=== PATIENT | male | born 1945 | race Caucasian/White ===

== ENCOUNTER → 2016-10-10 | Outpatient (CLI) | payer OTHER | LOC: NC 14:45 | PROVIDERS: ATTEND Family Medicine | DX: D51.9 Vitamin B12 deficiency anemia, unspecified (principal); G50.0 Trigeminal neuralgia; E78.5 Hyperlipidemia, unspecified; I50.9 Heart failure, unspecified; I25.10 Atherosclerotic heart disease of native coronary artery without angina pectoris ==

== ENCOUNTER → 2017-02-21 | Outpatient (CLI) | payer OTHER | END | disposition home or self-care (01) | LOC: GMAJ 11:49 | PROVIDERS: ATTEND Family Medicine | DX: N18.4 Chronic kidney disease, stage 4 (severe) (principal) ==

== ENCOUNTER → 2017-05-03 | Outpatient (CLI) | payer OTHER | LOC: GMAJ 15:01 | PROVIDERS: ATTEND Family Medicine | DX: E53.8 Deficiency of other specified B group vitamins (principal); I10 Essential (primary) hypertension; Z12.5 Encounter for screening for malignant neoplasm of prostate | CPT/HCPCS: 82607; 84443; G0103 ==

== ENCOUNTER → 2017-10-25 | Outpatient (CLI) | payer OTHER ==
--- NOTE | 2017-10-28 11:07 | MRI ---
EXAM DESCRIPTION: Lumbar Spine w/o Contrast MRI. CLINICAL HISTORY: RADICULOPATHY COMPARISON: MRI lumbar spine 03/16/2015. TECHNIQUE: Multiplanar, multiple standard sequences, non contrast MRI, lumbar spine. FINDINGS: L5-S1: Diffuse Modic type II endplate reactive changes. Moderate disc space loss. Mild facet arthrosis in the posterior ligament hypertrophy. Left ligament narrowing the subarticular lateral recess on the left. Deformity left L5 pars interarticularis. Minimal posterior disc osteophyte bulge into the canal. Marked left foraminal narrowing. Moderate right foraminal narrowing. L4-5: Disc desiccation and minimal disc space loss. Trace anterolisthesis. Posterior broad-based 4 mm disc bulge. Bilateral facet arthrosis and ligament hypertrophy more on the left. Narrowing of the subarticular recess on the left. Marked narrowing of the canal. Moderate stenosis left foramen. Moderate narrowing right foramen. L3-4: Disc desiccation and minimal disc space loss posterior. Schmorl's node superior L4 endplate. Associated with Modic type II endplate reactive changes. Posterior broad-based 4 mm disc bulge. Mild to moderate posterior ligament hypertrophy and facet arthrosis with moderate canal narrowing. Moderate foraminal narrowing. Mild narrowing left foramen. L2-3: Disc desiccation. Minimal posterior disc space loss and tiny posterior broad-based disc bulge. Mild posterior ligament hypertrophy and facet arthrosis. Significant narrowing left foramen. Moderate narrowing right foramen. Narrowing right subarticular recess. L1-2: Disc desiccation and anterior minimal disc bulge and endplate ridging. Posterior disc space narrowing. Trace retrolisthesis. Modic type II L1 endplate reactive changes. Mild facet arthrosis and posterior ligament hypertrophy. Mild canal narrowing. Bilateral moderate to severe foraminal narrowing. T12-L1: Disc desiccation and minimal disc space loss. Anterior bulging with endplate ridging. Grade 1 retrolisthesis. Small posterior disc bulge. Schmorl's node inferior T12 endplate with Modic type I endplate reactive changes. Mild canal narrowing. Mild facet arthrosis and posterior ligament hypertrophy. Moderate to severe foraminal narrowing. Conus terminates at this level. Paravertebral soft tissues show muscle atrophy. No soft tissue mass or abnormal fluid collection. L2-L4 levoscoliosis. Normal marrow signal in the remaining vertebral bodies and the posterior elements. Vertebral bodies are not compressed at any level. IMPRESSION: 1. Moderate spondylosis and disc space loss at L5-S1. Marked left foraminal narrowing. Narrowing of the left subarticular recess. Stable since the prior study. 2. L4-5 grade 1 anterolisthesis. 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 On the prior study. Moderate Stenosis left foramen. Progressed since the prior study. Posterior broad-based disc bulge. 3. Posterior disc bulge. Moderate canal narrowing. Moderate spondylosis anterior L4 endplate. 4. Posterior L2-3 broad-based disc bulge. Significant narrowing left foramen. Narrowing right subarticular recess. Electronically signed by: Marquez Massey MD 10/28/2017 11:06 AM [facility]
== END ==
LOC: MRI 12:48
PROVIDERS: ATTEND Psychiatry & Neurology Neurology
DX: M51.16 Intervertebral disc disorders with radiculopathy, lumbar region (principal); M47.896 Other spondylosis, lumbar region; M51.26 Other intervertebral disc displacement, lumbar region

== ENCOUNTER → 2017-11-05 | Outpatient (CLI) | payer OTHER | LOC: GMAJ 14:22 | PROVIDERS: ATTEND Family Medicine | DX: E53.8 Deficiency of other specified B group vitamins (principal); I10 Essential (primary) hypertension ==

== ENCOUNTER → 2018-04-25 | Outpatient (CLI) | payer OTHER | LOC: GMAJ 14:57 | PROVIDERS: ATTEND Family Medicine | DX: E53.8 Deficiency of other specified B group vitamins (principal); I10 Essential (primary) hypertension; Z12.5 Encounter for screening for malignant neoplasm of prostate ==

== ENCOUNTER → 2018-11-04 | Outpatient (CLI) | payer MEDICARE, OTHER ==
--- NOTE | 2018-11-04 17:29 | MRI ---
EXAM DESCRIPTION: Brain w/oContrast CLINICAL HISTORY: FACIAL WEAKNESS COMPARISON: CT head August 14, 2016 TECHNIQUE: Non contrast MRI of the brain is performed according to our usual protocol including multiplanar multi sequence technique. FINDINGS: Sagittal T1 images show intact corpus callosum. Normal pituitary gland with normal T1 appearance of the [place] and medulla and upper cervical cord. Normal signal intensity within the clivus and calvarium. Axial T2 fat sat images reveal preservation of intracranial vascular flow voids. Normal goins matter and white matter T2 signal intensity. Normal ventricles with normal gyral and sulcal fold pattern. The globes appear intact and symmetrical. No abnormal fluid signal in the paranasal sinuses, tympanic cavities or mastoid air cells. Axial flair images show a few scattered foci of increased signal intensity in the central and subcortical white matter of both cerebral hemispheres in addition to a tiny focus involving goins matter of the posterior left frontal lobe. Findings are consistent with chronic microvascular ischemic changes related to aging, diabetes or hypertension. Diffusion weighted images are negative for focal intense increased signal intensity in the brain parenchyma to suggest restricted diffusion. ADC mapping is negative. Axial T1 images show normal goins-white matter differentiation. No high signal intensity hemorrhagic lesion of the brain parenchyma. No subdural hematoma. Coronal susceptibility weighted images are negative for focal signal loss to suggest abnormal brain parenchymal calcification or hemosiderin deposition. IMPRESSION: No acute intracranial pathologic process. Mild chronic microvascular ischemic changes as described. Electronically signed by: Tarik Higgins MD 11/04/2018 5:27 PM [facility]
== END ==
LOC: RAD 14:44
PROVIDERS: ATTEND Family Medicine
DX: I69.992 Facial weakness following unspecified cerebrovascular disease (principal)

== ENCOUNTER 2019-01-13 17:08 | Inpatient (IN) | payer OTHER ==
--- NOTE | 2019-01-13 18:26 | ED.PDOC ---
History of Present Illness - General Source: patient Exam Limitations: clinical condition - History of Present Illness Initial Comments: the patient is a 73-year-old male presented to the emergency room secondary to increasing drowsiness, increasing weakness and falls. He has had several falls in the last few days. This is not really a new issue. The patient has had issues with oversedation with medications as well as generalized weakness and falls at least for the last 3 years according to medical records. The patient does have some very mild anasarca. He does have some mild periorbital edema. He has a mild abrasion just above the hairline centrally. Extraocular movements are intact. He does appear very tired. He is able to move all extremities. He does report pain in bilateral hips since his falls. He does take multiple sedating medications. He does take pyridostigmine but family is uncertain if he technically has myasthenia gravis. He is able to name off most of his medical problems. He is less certain about his medications. He denies overtaking any medications. He is not entirely certain when his last Lasix dose was. He is short of breath with activity but not really with lying back. Oxygen saturations were 88% in transit with EMS. The patient takes multiple chronic pain medications secondary to complex regional pain syndrome involving his neck and face. He takes large doses of hydrocodone and Ativan.he and family report no definite history of any congestive heart failure. The patient is not very active at baseline and does have significant deconditioning to start with. Timing/Duration: unsure Severity: moderate Improving Factors: nothing Worsening Factors: nothing Associated Symptoms: malaise, weakness <Gui Cartagena - Last Filed: 01/13/19 18:50> <Regla Caba - Last Filed: 01/13/19 20:56> - General Chief Complaint: General Stated Complaint: fallen twice today, edema Time Seen by Provider: 01/13/19 17:11 - History of Present Illness Allergies/Adverse Reactions: Allergies NO KNOWN ALLERGY Allergy (Verified 07/13/16 14:57) Home Medications: Ambulatory Orders Amlodipine Besylate [Norvasc] 10 mg PO DAILY 11/06/14 Clopidogrel Bisulfate [Plavix] 75 mg PO DAILY 11/06/14 Desvenlafaxine Succinate [Pristiq] 100 mg PO DAILY 02/06/15 Olanzapine 5 mg PO DAILY 11/06/14 Furosemide [Lasix] 40 mg PO ANJALI-OTH-DAY 07/13/16 Potassium Chloride [Potassium Chloride ER] 10 meq PO BID 07/13/16 Pregabalin [Lyrica] 100 mg PO BID 07/13/16 Metoprolol Succinate [Toprol Xl] 50 mg PO QAM #30 tab.er.24 08/16/16 Pyridostigmine [place] 30 mg PO TID 08/16/16 Chlorthalidone [Hygroton] 25 mg PO DAILY 01/13/19 HYDROcodone 10MG/APAP 325MG [[place] ] 2 ea PO Q6H PRN 01/13/19 Rosuvastatin Calcium 10 mg PO DAILY 01/13/19 Review of Systems - Review of Systems Constitutional: States: malaise, weakness EENTM: States: no symptoms reported Respiratory: States: short of breath - with activity Cardiology: States: edema Gastrointestinal/Abdominal: States: no symptoms reported Genitourinary: States: no symptoms reported Musculoskeletal: States: see HPI Skin: States: see HPI Neurological: States: see HPI Endocrine: States: no symptoms reported All other Systems: No Change from Baseline <Gui Cartagena - Last Filed: 01/13/19 18:50> Past Medical History (General) - Patient Medical History Hx Seizures: No Hx Stroke: No Hx Asthma: No Hx of COPD: No Hx Cardiac Disorders: Yes Hx Congestive Heart Failure: No Hx Pacemaker: No Hx Hypertension: Yes Hx Diabetes: No Hx MRSA: Yes MRSA Source:: Wound - Vaccination History Hx Influenza Vaccination: Yes Hx Pneumococcal Vaccination: Yes - Social History Hx Tobacco Use: Yes Hx Chewing Tobacco Use: Yes Hx Alcohol Use: No Hx Substance Use: No Hx Substance Use Treatment: No Hx Depression: No Hx Physical Abuse: No Hx Emotional Abuse: No - Female History Patient : No <Gui Cartagena - Last Filed: 01/13/19 18:50> Family Medical History - Family History Father Family History: Unknown Living Status: Age at (years of age): 71 Cause of : [place] Mother Family History: Unknown Living Status: Age at (years of age): 87 Cause of : [place] <Gui Cartagena - Last Filed: 01/13/19 18:50> Physical Exam - Physical Exam General Appearance: Lethargic - but arousable to voice. He does have some decreased hearing so you have to speak loudly., Unkempt Eye Exam: bilateral normal - extraocular movements are intact. He does have some periorbital edema. Ears, Nose, Throat: normal pharynx Neck: full range of motion, supple Respiratory: no respiratory distress, no accessory muscle use, other - very mild bibasilar rales. Cardiovascular/Chest: normal peripheral pulses, regular rate, rhythm, other - +1 edema to bilateral lower extremities Peripheral Pulses: radial,right: 2+, radial,left: 2+, dorsalis pedis,right: 2+, dorsalis pedis,left: 2+ Gastrointestinal/Abdominal: non tender - obese, soft, other - pelvis appears to be stable with pressure. Rectal Exam: deferred Back Exam: no CVA tenderness Extremity: normal capillary refill, pedal edema, other - he does have discomfort palpation with bilateral hips and does have some discomfort with active and passive range of motion as well in the areas. Neurologic: other - drowsy but oriented. Skin Exam: normal color - with the exception of a mild abrasion to the central upper scalp and a mild abrasion to the left knee from the fall Comments: Vital Signs - 24 hr 01/13/19 17:22 Temperature 100.0 F H Pulse Rate [ 78 left brachial] Respiratory 14 Rate Blood Pressure 128/52 [right brachial ] O2 Sat by Pulse 98 Oximetry <Gui Cartagena - Last Filed: 01/13/19 18:50> Progress - Progress Progress: 01/13/19 18:32 the patient is a 73-year-old male presenting with progressive weakness and recurrent falls and drowsiness. The patient does take numerous sedating medications which may be the entirety of the explanation for this behavior. He also likely has myasthenia gravis being that he takes pyridostigmine. It is possible he has missed a few doses or that his dose may end up needing to be increased on this medication. 01/13/19 18:51 update the patient is a little more responsive after a dose of pyridostigmine. Troponin has come back at 0.29 but no evidence of any chest pain. CK is still pending. Renal function is still pending. Chest x-ray still pending. Patient will be checked out on coming ER physician for completion of workup and disposition. - Results/Orders Results/Orders: EKG shows normal sinus rhythm at 72 bpm. He does have criteria for LVH and he does have what is probably a mild bundle branch block. He has old Q waves in lead 3. He has old ST depression in lead 1 and aVL. Poor R-wave progression in anterior leads is new since 2016. Normal QT interval. head CT shows chronic microvascular changes. No acute pathology. <Gui Cartagena L - Last Filed: 01/13/19 18:50> - Progress Progress: 01/13/19 20:55 PT REMAINS SOMNOLENT, HOWEVER ABLE TO BE ARROUSED WITH VERBAL STIMULI. PT HAS SLURRED SPEECH BUT ANSWERS QUESTIONS APPROPRIATELY. LABS AND DIAGNOSTICS DISCUSSED WITH FAMILY AT BEDSIDE. - Results/Orders Results/Orders: Laboratory Tests 01/13/19 01/13/19 01/13/19 17:55 17:56 17:56 WBC 5.8 RBC 3.75 L Hgb 12.5 L Hct 36.9 L MCV 98.2 H MCH 33.3 H MCHC 33.9 RDW 12.9 Plt Count 152 MPV 7.4 Absolute Neuts (auto) 4.10 Absolute Lymphs (auto) 0.80 L Absolute Monos (auto) 0.80 Absolute Eos (auto) 0.00 Absolute Basos (auto) 0.00 Neutrophils % 71.3 Lymphocytes % 14.4 L Monocytes % 13.1 H Eosinophils % 0.6 L Basophils % 0.6 pCO2 49 H pO2 97 HCO3 29.8 ABG pH 7.410 ABG O2 Saturation 99.6 H ABG Base Excess 4.8 ABG Deoxyhemoglobin 0.4 Oxyhemoglobin % 97.4 Carboxyhemoglobin % 0.3 L Methemoglobin % Sat 1.9 H Calc Total Hemoglobin 11.8 L Sodium 143 Potassium 3.3 L Chloride 104 Carbon Dioxide 27 Anion Gap 15.3 BUN 28 H Creatinine 1.35 H BUN/Creatinine Ratio 20.7 H POC Glucose Random Glucose 111 H Serum Osmolality 291.1 Lactic Acid Calcium 9.0 Magnesium 1.9 Total Bilirubin 0.5 AST 68 H ALT 32 Alkaline Phosphatase 74 Ammonia CK-MB (CK-2) 68.4 H* Troponin I 0.29 H* B-Natriuretic Peptide 56.5 Serum Total Protein 6.6 Albumin 4.1 Globulin 2.5 Albumin/Globulin Ratio 1.6 TSH 0.65 Urine Color Urine Appearance Urine pH Ur Specific [place] Urine Protein Urine Glucose (UA) Urine Ketones Urine Blood Urine Nitrite Urine Bilirubin Urine Urobilinogen Ur Leukocyte Esterase Urine RBC Urine WBC Ur Epithelial Cells Urine Bacteria 01/13/19 01/13/19 01/13/19 17:56 17:56 17:56 WBC RBC Hgb Hct MCV MCH MCHC RDW Plt Count MPV Absolute Neuts (auto) Absolute Lymphs (auto) Absolute Monos (auto) Absolute Eos (auto) Absolute Basos (auto) Neutrophils % Lymphocytes % Monocytes % Eosinophils % Basophils % pCO2 pO2 HCO3 ABG pH ABG O2 Saturation ABG Base Excess ABG Deoxyhemoglobin Oxyhemoglobin % Carboxyhemoglobin % Methemoglobin % Sat Calc Total Hemoglobin Sodium Potassium Chloride Carbon Dioxide Anion Gap BUN Creatinine BUN/Creatinine Ratio POC Glucose 94 Random Glucose Serum Osmolality Lactic Acid 1.6 Calcium Magnesium Total Bilirubin AST ALT Alkaline Phosphatase Ammonia 49 H CK-MB (CK-2) Troponin I B-Natriuretic Peptide Serum Total Protein Albumin Globulin Albumin/Globulin Ratio TSH Urine Color Urine Appearance Urine pH Ur Specific [place] Urine Protein Urine Glucose (UA) Urine Ketones Urine Blood Urine Nitrite Urine Bilirubin Urine Urobilinogen Ur Leukocyte Esterase Urine RBC Urine WBC Ur Epithelial Cells Urine Bacteria 01/13/19 18:06 WBC RBC Hgb Hct MCV MCH MCHC RDW Plt Count MPV Absolute Neuts (auto) Absolute Lymphs (auto) Absolute Monos (auto) Absolute Eos (auto) Absolute Basos (auto) Neutrophils % Lymphocytes % Monocytes % Eosinophils % Basophils % pCO2 pO2 HCO3 ABG pH ABG O2 Saturation ABG Base Excess ABG Deoxyhemoglobin Oxyhemoglobin % Carboxyhemoglobin % Methemoglobin % Sat Calc Total Hemoglobin Sodium Potassium Chloride Carbon Dioxide Anion Gap BUN Creatinine BUN/Creatinine Ratio POC Glucose Random Glucose Serum Osmolality Lactic Acid Calcium Magnesium Total Bilirubin AST ALT Alkaline Phosphatase Ammonia CK-MB (CK-2) Troponin I B-Natriuretic Peptide Serum Total Protein Albumin Globulin Albumin/Globulin Ratio TSH Urine Color Yellow Urine Appearance Clear Urine pH 5.0 Ur Specific [place] 1.015 Urine Protein Negative Urine Glucose (UA) Negative Urine Ketones Negative Urine Blood Moderate H Urine Nitrite Negative Urine Bilirubin Negative Urine Urobilinogen 0.2 Ur Leukocyte Esterase Negative Urine RBC 0-1 Urine WBC 0 Ur Epithelial Cells 0 Urine Bacteria 0 <Regla Caba H - Last Filed: 01/13/19 20:56> Departure <Gui Cartagena - Last Filed: 01/13/19 18:50> - Departure Time of Disposition: 20:54 <Regla Caba - Last Filed: 01/13/19 20:56> - Departure Clinical Impression: Generalized weakness, Lethargy, Rhabdomyolysis, Acute kidney injury, Elevated troponin I level Fall at home Qualifiers: Encounter type: initial encounter Qualified Code(s): W19.XXXA - Unspecified fall, initial encounter Disposition: Admit Patient Condition: Poor Departure Forms: ED Discharge - Pt. Copy, Patient Portal Self Enrollment Referrals: Benjamin Kirby MD [Primary Care Provider] - 1-2 Weeks Home Medications: Ambulatory Orders Amlodipine Besylate [Norvasc] 10 mg PO DAILY 11/06/14 Clopidogrel Bisulfate [Plavix] 75 mg PO DAILY 11/06/14 Desvenlafaxine Succinate [Pristiq] 100 mg PO DAILY 11/06/14 Olanzapine 5 mg PO DAILY 11/06/14 Furosemide [Lasix] 40 mg PO ANJALI-OTH-DAY 07/13/16 Potassium Chloride [Potassium Chloride ER] 10 meq PO BID 07/13/16 Pregabalin [Lyrica] 100 mg PO BID 07/13/16 Metoprolol Succinate [Toprol Xl] 50 mg PO QAM #30 tab.er.24 08/16/16 Pyridostigmine [place] 30 mg PO TID 08/16/16 Chlorthalidone [Hygroton] 25 mg PO DAILY 01/13/19 HYDROcodone 10MG/APAP 325MG [[place] 10/325] 2 ea PO Q6H PRN 01/13/19 Rosuvastatin Calcium 10 mg PO DAILY 01/13/19 Decision To Admit - Decistion To Admit Decision to Admit Reason: Admit from ER Decision to Admit Date: 01/13/19 Decision to Admit Time: 20:54 - CASE DISCUSSED WITH JESSIE SAMUEL NP WHO AGREES TO ADMIT <Regla Caba - Last Filed: 01/13/19 20:56>
--- NOTE | 2019-01-13 18:43 | CT ---
PROCEDURE: Head CLINICAL HISTORY: 73 years Male ams TECHNIQUE: Contiguous axial CT images obtained through the brain without IV contrast. This CT exam was performed according to our departmental dose-optimization program, which includes one or more of the following dose reduction techniques: automated exposure control, adjustment of the mA and/or kV according to patient size, and/or use of iterative reconstruction technique. COMPARISON: Correlation is made with the prior MRI dated 11/04/2018 FINDINGS: There is no intracranial hemorrhage, extraaxial collection, or evidence of acute transcortical infarction. Scattered foci of low attenuation within the periventricular white matter and calcifications in the basal ganglia are most compatible with chronic microvascular disease. The ventricles and sulci are symmetric without midline shift or mass effect. Vascular calcifications are noted. No lesion of the skull base or calvarium is identified. The paranasal sinuses and mastoid air cells are clear. IMPRESSION: Mild chronic microvascular changes without acute intracranial finding. Electronically signed by: Alondra Nieves MD 01/13/2019 6:40 PM CDT
[2019-01-13] MEDS ORDERED: SODIUM CHLORIDE 0.9% 1000ML 1,000 ML IVS ONE (20:39)
--- NOTE | 2019-01-13 22:46 | HP ---
SUPERVISING PHYSICIAN: Betina Bobo MD CHIEF COMPLAINT: Fall. HISTORY OF PRESENT ILLNESS: Mr. Chauhan is a 73-year-old male patient with a history of myasthenia gravis, reflex sympathetic dystrophy and trigeminal neuralgia. He presented to the Emergency Room via 911 secondary to increased drowsiness and weakness with multiple falls within the last several days. He had actually fallen on the same day as admission and laid on the floor for a couple of hours face down and required assistance to get up and was taken to the Emergency Department for evaluation. In the Emergency Room, he was found to be very somnolent and appeared to be over sedated with medications to include [place]. He was also having some bilateral hip pain since the fall and he does take pyridostigmine for myasthenia gravis and is unsure whether or not he had actually missed a dose or two the other day. His O2 saturations on transport to the Emergency Room were around 88%. Additional laboratory studies in the Emergency Room showed he did have an elevated ammonia level at 49 and a CK 4,564 with troponin elevated at 0.29. He denied any chest pains. EKG showed no acute injury pattern. He then had a CT of the head which showed mild chronic microvascular changes without acute intracranial findings. He was given a dose of pyridostigmine which did result in some increase in his mentation. Given his fall and his elevated CPK levels with concerns for developing rhabdomyolysis and what appears to be a mild exacerbation of his myasthenia gravis secondary to poor compliance with medication regimen, the patient is going to be admitted to the hospital for ongoing treatment of acute rhabdomyolysis secondary to a same- level fall and further neurologic evaluation. PAST MEDICAL HISTORY: 1. Coronary artery disease. 2. Hyperlipidemia. 3. Hypertension. 4. Diverticulosis. 5. Myasthenia gravis. 6. Transient ischemic attacks. 7. Reflex sympathetic dystrophy. 8. Trigeminal neuralgia. PAST SURGICAL HISTORY: 1. Coronary stent placement in 2004 and 2014. 2. Trigeminal nerve ablation on the right. HOME MEDICATIONS: 1. Rosuvastatin 10 mg daily. 2. Pyridostigmine bromide 30 mg t.i.d. 3. Lyrica 100 mg b.i.d. 4. Potassium chloride 10 mEq b.i.d. 5. Olanzapine 5 mg daily. 6. Metoprolol XL 50 mg daily. 7. [place] 10/325 mg 2 tablets q.6h. as needed. 8. Lasix 40 mg every other day. 9. Pristiq 100 mg daily. 10. Plavix 75 mg daily. 11. Chlorthalidone 25 mg daily. 12. Norvasc 10 mg daily. ALLERGIES: NO KNOWN DRUG ALLERGIES. FAMILY HISTORY: Unknown. SOCIAL HISTORY: The patient is disabled. He is and lives at home with his with Lewy body dementia. He has two children. He does not drink alcohol and has never smoked tobacco. REVIEW OF SYSTEMS: CONSTITUTIONAL: Positive for general malaise and weakness with falls. HEENT: Negative for sore throats, earaches, nasal congestion, sinus pressure. RESPIRATORY: Positive for shortness of breath with activity, but negative for any wheezing, coughing. CARDIOVASCULAR: Negative for chest pain, palpitations, tachycardia or syncopal episodes. Positive for peripheral edema. GASTROINTESTINAL: Negative for nausea, vomiting, diarrhea, constipation or abdominal pain. GENITOURINARY: Negative for dysuria, hematuria, polyuria. MUSCULOSKELETAL: As noted in history of present illness, ongoing weakness and bilateral hip pain. NEUROLOGIC: As noted in history of present illness, positive for myasthenia gravis with recent falls and increase in somnolence. Negative for seizures, ataxia. PHYSICAL EXAMINATION: VITAL SIGNS: Temperature 100.0. Pulse 88. Blood pressure 120/52. Respirations 14. Saturation 98% on 2 liter nasal cannula. Admission weight 104.8 kg. GENERAL: On examination in the Emergency Room, the patient is resting comfortably. He is a little lethargic, but easily arousable with voice, very unkept, but well-nourished, well-hydrated. HEENT: Tympanic membranes clear bilaterally. Oropharynx is pink, moist without any lesions. There is some bilateral periorbital edema from laying face down for several hours. Extraocular movements are intact. No nystagmus. NECK: Supple, nontender with full range of motion. RESPIRATORY: Lungs diminished towards the bases with just very fine bibasilar rales. No wheezing. Breath sounds equal bilaterally. CARDIOVASCULAR: Regular rate and rhythm without any appreciable murmurs, gallops, or rubs. ABDOMEN: Obese, but soft, nontender. Positive bowel sounds. RECTAL: Deferred. BACK: No CVA tenderness. EXTREMITIES: There is trace edema bilaterally. Pelvis appears to be stable on exam. NEUROLOGIC: The patient is drowsy and mildly lethargic, but easily arousable, but when aroused, he is oriented x3. SKIN: There is mild abrasion to the central upper scalp area and mild abrasion to the left knee from same-level fall. Skin is pink, warm and dry. No lesions or rashes other than noted above. LABORATORY: White count 5,800, hemoglobin 12.5, hematocrit 36.9, platelet count 152,000. Differential without a left shift. Blood gas analysis showed pH 7.41, pCO2 49, pO2 97, pCO3 29, base excess normal at 4.8, saturation 99% on 2 liters nasal cannula. Chemistries showed mildly low potassium at 3.3, BUN 28, creatinine 1.35, glucose 111, calcium 9.9, magnesium 1.9, bilirubin 0.5, AST slightly elevated at 68. ALT and alpha within normal limits. Glucose 564, troponin 0.29, TSH normal at 0.65. Urinalysis showed a moderate amount of blood, otherwise within normal limits. RADIOLOGY: CT of the head per radiologic interpretation showed mild chronic microvascular changes without acute intracranial findings. EKG showed normal sinus rhythm at 72 with probable mild bundle branch block and old ST depression in lead I and AVL compared to 2016. ASSESSMENT: 1. Mild to moderate exacerbation of myasthenia gravis secondary to medical compliance. 2. Generalized weakness with same-level fall secondary to #1. 3. Acute rhabdomyolysis secondary to #1. 4. Acute kidney injury secondary to rhabdomyolysis. 5. Elevated troponin level with no signs of acute injury pattern on EKG and the patient without any signs or symptoms of chest pain requiring further rule out. 6. Elevated ammonia level, probably due to rhabdomyolysis with elevated CPK levels requiring ongoing fluid management with the patient showing good clinical response to treatment. 7. Hypertension. 8. History of reflex sympathetic dystrophy and trigeminal neuralgia. 9. Electrolyte imbalance with a mild hypokalemia. PLAN: The patient is going to be admitted for treatment of acute rhabdomyolysis secondary to same-level fall. We will start him on some D5W with 75 mg of sodium bicarb at [address] will [address] a Riley catheter to further monitor is strict I&O pattern as we try to correct the elevated CPK and his acute renal failure. I will hold off on his sedative medications, but resume his pyridostigmine to prevent any further exacerbation of his myasthenia gravis. We will plan to repeat labs in the morning including CBC, CMP and CPK levels with troponin and ammonia as needed. We will have him on DVT prophylaxis per protocol. We will anticipate his length of stay to be 2 to 3 days. When his kidney function is improving and CPK returning to normal levels, he will be discharged to followup in outpatient setting. [facility][id number] [facility]
[2019-01-13] MEDS ORDERED: SODIUM CHLORIDE 0.9% (FLUSH) 10 ML SYG IV PRN (23:10)
[2019-01-13] MEDS ORDERED: ONDANSETRON INJ 4 MG/2 ML VIAL IV PRN (23:10)
[2019-01-13] MEDS ORDERED: DEXTROSE 5% 1000ML 1,000 ML IVS ONE (23:29)
[2019-01-13] MEDS ORDERED: SODIUM BICARBONATE VIAL 50 MEQ/50 ML VIAL ONE (23:29)
[2019-01-13] MEDS: SODIUM BICARBONATE VIAL 75 MEQ in DEXTROSE 5% 1000ML 1,000 ML IVS PRN (23:41)
[2019-01-13] MEDS: IV SET AND CAP CHANGE INJ INJ SCH (23:57)
[2019-01-14] MEDS ORDERED: DEXTROSE 5% 1000ML 0 ML IVS ONE (07:03)
[2019-01-14] MEDS ORDERED: SODIUM BICARBONATE VIAL 50 MEQ/50 ML VIAL ONE ×3 (07:04→22:58)
[2019-01-14] MEDS: SODIUM BICARBONATE VIAL 75 MEQ in DEXTROSE 5% 1000ML 1,000 ML IVS PRN ×2 (07:10→17:06)
[2019-01-14] MEDS: amLODIPine BESYLATE 5 MG TAB PO SCH (11:18)
[2019-01-14] MEDS: CLOPIDOGREL 75 MG TAB PO SCH (11:18)
[2019-01-14] MEDS: PREGABALIN 100 MG CAP PO SCH ×2 (11:18→20:58)
[2019-01-14] MEDS: PYRIDOSTIGMINE BROMIDE 60 MG PO SCH ×3 (11:18→20:58)
[2019-01-14] MEDS: METOPROLOL SUCCINATE XL 50 MG TAB PO SCH (11:18)
[2019-01-14] MEDS: OLANZapine ODT 5 MG TAB PO SCH (11:18)
[2019-01-14] MEDS: ENOXAPARIN SODIUM 40 MG/0.4 ML SYG SUBCU SCH (11:20)
--- NOTE | 2019-01-14 14:51 | RAD ---
EXAM DESCRIPTION: Hip Bilateral CLINICAL HISTORY: bi hip pain COMPARISON: None. TECHNIQUE: 2 views bilateral FINDINGS: Examination of the left hip reveals no bone joint or soft tissue abnormality. No fracturing is detected. Examination of the right hip reveals no bone joint or soft tissue abnormality. No fracturing is detected. IMPRESSION: Normal bilateral hips. Electronically signed by: Yossi Mace MD 01/14/2019 2:48 PM CDT
[2019-01-14] MEDS ORDERED: DEXTROSE 5% 1000ML 1,000 ML IVS ONE ×2 (16:53→22:57)
[2019-01-14] MEDS: DESVENLAFAXINE SUCCINATE 100 MG PO SCH (17:07)
[2019-01-14] MEDS: ACETAMINOPHEN 325 MG TAB PO PRN (22:10)
[2019-01-14] MEDS ORDERED: AZITHROMYCIN IV 500 MG VIAL IVPB ONE (22:58)
[2019-01-14] MEDS ORDERED: SODIUM CHL 0.9% 50ML MIN-BAG+ 50 ML IVPB ONE (22:58)
[2019-01-14] MEDS ORDERED: cefTRIAXone SODIUM 1 GM VIAL ONE (22:58)
[2019-01-14] MEDS ORDERED: SODIUM CHLORIDE 0.9% 250ML 250 ML ONE (22:58)
[2019-01-14] MEDS ORDERED: POTASSIUM CHLORIDE 20 MEQ TAB PO ONE (23:02)
[2019-01-14] MEDS: cefTRIAXone SODIUM 1 GM in SODIUM CHL 0.9% 50ML MIN-BAG+ 50 ML IVPB SCH (23:10)
[2019-01-14] MEDS: IPRATROPIUM/ALBUTEROL 3 ML VIAL NEB SCH (23:16)
[2019-01-14] MEDS ORDERED: SODIUM CHLORIDE 0.45% 1000ML 1,000 ML IVS PRN (23:20)
[2019-01-14] MEDS ORDERED: KCL 20MEQ/0.45% NS 1,000 ML IVS ONE (23:21)
[2019-01-14] MEDS: AZITHROMYCIN IV 500 MG in SODIUM CHLORIDE 0.9% 250ML 250 ML IVPB SCH (23:25)
[2019-01-14] MEDS: KCL 20MEQ/0.45% NS 1,000 ML IVS PRN (23:46)
[2019-01-15] MEDS: KCL 20MEQ/0.45% NS 1,000 ML IVS PRN ×3 (06:15→20:12)
--- NOTE | 2019-01-15 08:00 | PN ---
SUPERVISING PHYSICIAN: Betina Bobo MD DATE: 01/14/19 SUBJECTIVE: The patient is much more alert this morning. He appears to be back to his baseline mental status. His son and were at the bedside. The patient is alert. He is not complaining of any pain he normally does not have. He has had no chest pain, shortness of breath, nausea, vomiting. OBJECTIVE: VITAL SIGNS: Temperature 99. Pulse 63. Blood pressure 120/66. Respirations 20. Oxygen saturation 96% on 1 liter nasal cannula at rest. I&Os show negative balance of 405 with 1995 in and 2400 out. He has had one bowel movement. Weight 104.8 kg. GENERAL: The patient is resting in bed comfortably. He is alert. CHEST: Lungs clear to auscultation, slightly diminished towards the bases bilaterally. HEART: Regular rate and rhythm. ABDOMEN: Obese, but soft and nontender. Positive bowel sounds. EXTREMITIES: No edema. NEUROLOGIC: Alert and oriented times three. LABORATORY: WBC stable at 5,900. Hemoglobin and hematocrit are stable at 13.1 and 39.3 respectively. Platelet count 142,000. Differential without a left shift. Chemistries show a continued low potassium of 3.0. Carbon dioxide normal at 29. BUN elevated at 22, creatinine normalized to 1.18. Calcium 8.8. Liver functions show slight elevation of AST. ALT is within normal limits as well as alkaline phosphatase. CK is up to 5,010. Troponin is down to 0.27. Urinalysis showed a moderate amount of blood. MICROBIOLOGY: MRSA surveillance culture is pending. RADIOLOGY: Hip x-ray was without any acute findings per radiologic interpretation of bilateral hips. ASSESSMENT: 1. Mild exacerbation of myasthenia gravis secondary to poor medical compliance with medication regimen. 2. Generalized weakness complicated by sedative medications including [place] and presenting as a same-level fall secondary to #1. 3. Acute rhabdomyolysis secondary to #1, improving with fluids. 4. Acute kidney injury, now normal baseline levels, secondary to rhabdomyolysis and on current bicarbonate infusion. 5. Elevated troponin level, returning to baseline levels with no signs of acute injury on EKG and the patient with no signs of chest pains or complications, likely due to high levels of CK and mild kidney injury. 6. Elevated ammonia levels, probably due to rhabdomyolysis and elevated CK levels presenting as a metabolic encephalopathy exacerbated by myasthenia gravis, now back to baseline levels as far as his mentation. 7. Hypertension, stable. 8. History of reflex sympathetic dystrophy and trigeminal neuralgia. 9. Electrolyte imbalance with persistent hypokalemia secondary to IV administration of fluids. PLAN: We will continue with treatment of acute rhabdomyolysis with D5W and 75 mEq of sodium bicarb running at 150. We will continue to monitor his I&Os with a Riley catheter with anticipation of removing that tomorrow. We will plan to repeat his CK levels tonight around 10 o'clock and in the morning. We will resume the rest of his medications including pain management and monitor his neuro status closely. Until the CK level is returning to baseline levels, we will continue to treat as needed. He will be on DVT prophylaxis. Until he clinically improves well enough to continue with outpatient management, we will continue to monitor and treat as needed. [facility][id number] [facility]
[2019-01-15] MEDS: PYRIDOSTIGMINE BROMIDE 60 MG PO SCH ×3 (08:41→21:01)
[2019-01-15] MEDS: CLOPIDOGREL 75 MG TAB PO SCH (08:43)
[2019-01-15] MEDS: OLANZapine ODT 5 MG TAB PO SCH (08:43)
[2019-01-15] MEDS: ATORVASTATIN 20 MG TAB PO SCH (08:43)
[2019-01-15] MEDS: amLODIPine BESYLATE 5 MG TAB PO SCH (08:43)
[2019-01-15] MEDS: ENOXAPARIN SODIUM 40 MG/0.4 ML SYG SUBCU SCH (08:44)
[2019-01-15] MEDS: POTASSIUM CHLORIDE 10 MEQ TAB PO SCH ×2 (08:44→20:59)
[2019-01-15] MEDS: METOPROLOL SUCCINATE XL 50 MG TAB PO SCH (08:44)
[2019-01-15] MEDS: PREGABALIN 100 MG CAP PO SCH ×2 (08:44→20:59)
[2019-01-15] MEDS ORDERED: POTASSIUM CHLORIDE 20 MEQ TAB PO ONE (08:51)
[2019-01-15] MEDS: IPRATROPIUM/ALBUTEROL 3 ML VIAL NEB SCH ×4 (09:02→19:57)
[2019-01-15] MEDS: DESVENLAFAXINE SUCCINATE 100 MG PO SCH ×2 (09:08→14:33)
--- NOTE | 2019-01-15 10:34 | PN ---
SUPERVISING PHYSICIAN: Betina Bobo MD DATE: 01/15/19 SUBJECTIVE: The patient is lying in bed. He has no complaints of nausea, vomiting, diarrhea, constipation or shortness of breath. OBJECTIVE: VITAL SIGNS: Temperature 98.3. Heart rate 66. Blood pressure 123/67. Respiratory rate 16. O2 saturation 93% on 1 liter nasal cannula. RESPIRATORY: Essentially clear to auscultation bilaterally. CARDIAC: Regular rate and rhythm. GASTROINTESTINAL: Abdomen is soft, nondistended, nontender. Bowel sounds are positive. NEUROLOGIC: Awake, alert and oriented times three. LABORATORY: Sodium 141, potassium 3.3. Creatinine kinase 3,342. All other labs and films have been reviewed via the EMR. ASSESSMENT: 1. Mild exacerbation of myasthenia gravis secondary to poor medical compliance with medication regimen. 2. Generalized weakness complicated by sedative medications including [place] and presenting as a same-level fall secondary to #1. 3. Acute rhabdomyolysis secondary to #1, improving with fluids. 4. Acute kidney injury, now normal baseline levels, secondary to rhabdomyolysis and on current bicarbonate infusion. 5. Elevated troponin level, returning to baseline levels with no signs of acute injury on EKG and the patient with no signs of chest pains or complications, likely due to high levels of CK and mild kidney injury. 6. Elevated ammonia levels, probably due to rhabdomyolysis and elevated CK levels presenting as a metabolic encephalopathy exacerbated by myasthenia gravis, now back to baseline levels as far as his mentation. 7. Hypertension, stable. 8. History of reflex sympathetic dystrophy and trigeminal neuralgia. 9. Electrolyte imbalance with persistent hypokalemia secondary to IV administration of fluids. PLAN: We will continue present supportive care. We will continue with fluids. We will repeat his creatinine kinase in the morning. We will also need to do bladder training tomorrow as he has a Riley catheter and we will need to discontinue that in the next 24 to 48 hours. Otherwise, we will monitor his I&O closely. We will repeat his lab in the morning. We will continue to monitor the patient closely and follow as needed. [facility][id number] [facility]
[2019-01-15] MEDS ORDERED: HYDROcodone 10MG/APAP 325MG 1 EA TAB ONE (16:08)
[2019-01-15] MEDS ORDERED: HYDROcodone 10MG/APAP 325MG 1 EA TAB PO PRN (16:14)
[2019-01-15] MEDS ORDERED: cefTRIAXone SODIUM 1 GM VIAL ONE (19:29)
[2019-01-15] MEDS ORDERED: SODIUM CHLORIDE 0.9% 250ML 250 ML ONE (19:29)
[2019-01-15] MEDS ORDERED: SODIUM CHL 0.9% 50ML MIN-BAG+ 50 ML IVPB ONE (19:29)
[2019-01-15] MEDS ORDERED: LORazepam 1 MG TAB ONE (19:30)
[2019-01-15] MEDS ORDERED: AZITHROMYCIN IV 500 MG VIAL IVPB ONE (19:31)
[2019-01-15] MEDS: HYDROcodone 10MG/APAP 325MG 1 EA TAB PO PRN (20:59)
[2019-01-15] MEDS: LORAZEPAM PO PRN (21:00)
[2019-01-15] MEDS: ACETAMINOPHEN 325 MG TAB PO PRN (21:34)
[2019-01-15] MEDS: cefTRIAXone SODIUM 1 GM in SODIUM CHL 0.9% 50ML MIN-BAG+ 50 ML IVPB SCH (22:46)
[2019-01-15] MEDS: AZITHROMYCIN IV 500 MG in SODIUM CHLORIDE 0.9% 250ML 250 ML IVPB SCH (23:13)
[2019-01-16] MEDS: KCL 20MEQ/0.45% NS 1,000 ML IVS PRN ×3 (03:15→16:35)
[2019-01-16] MEDS: PREGABALIN 100 MG CAP PO SCH ×2 (08:07→20:48)
[2019-01-16] MEDS: POTASSIUM CHLORIDE 10 MEQ TAB PO SCH ×2 (08:07→20:47)
[2019-01-16] MEDS: amLODIPine BESYLATE 5 MG TAB PO SCH (08:07)
[2019-01-16] MEDS: ENOXAPARIN SODIUM 40 MG/0.4 ML SYG SUBCU SCH (08:07)
[2019-01-16] MEDS: PYRIDOSTIGMINE BROMIDE 60 MG PO SCH ×3 (08:08→20:45)
[2019-01-16] MEDS: CLOPIDOGREL 75 MG TAB PO SCH (08:08)
[2019-01-16] MEDS: DESVENLAFAXINE SUCCINATE 100 MG PO SCH (08:08)
[2019-01-16] MEDS: ATORVASTATIN 20 MG TAB PO SCH (08:08)
[2019-01-16] MEDS: OLANZapine ODT 5 MG TAB PO SCH (08:08)
[2019-01-16] MEDS: METOPROLOL SUCCINATE XL 50 MG TAB PO SCH (08:08)
[2019-01-16] MEDS: HYDROcodone 10MG/APAP 325MG 1 EA TAB PO PRN ×3 (08:14→20:47)
[2019-01-16] MEDS: IPRATROPIUM/ALBUTEROL 3 ML VIAL NEB SCH (08:29)
[2019-01-16] MEDS ORDERED: IPRATROPIUM/ALBUTEROL 3 ML VIAL NEB PRN (09:00)
--- NOTE | 2019-01-16 11:45 | PN ---
SUPERVISING PHYSICIAN: Betina Bobo MD DATE: 01/16/19 SUBJECTIVE: The patient is sitting up in his chair in his room. He has no complaints of nausea, vomiting, diarrhea, chest pain or shortness of breath. We discussed his plan of care and that he would possibly be able to go home tomorrow. He agreed. OBJECTIVE: VITAL SIGNS: Temperature 99. Heart rate 61. Blood pressure 152/61. Respiratory rate 16. O2 saturation 96% on room air. RESPIRATORY: Essentially clear to auscultation bilaterally. CARDIAC: Regular rate and rhythm. GASTROINTESTINAL: Abdomen is soft, nondistended, nontender. Bowel sounds are positive. NEUROLOGIC: Awake, alert and oriented times three. LABORATORY: Metabolic panel is basically within normal limits. Creatinine kinase is 1,895. All other labs and films have been reviewed via the EMR. ASSESSMENT: 1. Mild exacerbation of myasthenia gravis secondary to poor medical compliance with medication regimen. 2. Generalized weakness complicated by sedative medications including [place] and presenting as a same-level fall secondary to #1. 3. Acute rhabdomyolysis secondary to #1, improving with fluids. 4. Acute kidney injury, now normal baseline levels, secondary to rhabdomyolysis and on current bicarbonate infusion. 5. Elevated troponin level, returning to baseline levels with no signs of acute injury on EKG and the patient with no signs of chest pains or complications, likely due to high levels of CK and mild kidney injury. 6. Elevated ammonia levels, probably due to rhabdomyolysis and elevated CK levels presenting as a metabolic encephalopathy exacerbated by myasthenia gravis, now back to baseline levels as far as his mentation. 7. Hypertension, stable. 8. History of reflex sympathetic dystrophy and trigeminal neuralgia. 9. Electrolyte imbalance with persistent hypokalemia secondary to IV administration of fluids. PLAN: We will continue present supportive care. I will repeat his CPK and troponin in the morning. Hopefully if his CPK is less than 1000, he can be discharged home. I recommend that his medications be reevaluated as he was quite lethargic when he came in and continues to be so as he asks for pain and antianxiety medicines quite frequently. It was reported that he and his do exchange medications. I am not sure that that is going to rectify the problem, but we discussed at length about taking his own medications and not over- medicating as well as with p.rrenee. medications. Otherwise, we will continue to monitor the patient closely and follow as needed. Dr. Bobo is the collaborating physician and available for consultation. #[id number] [facility]
[2019-01-16] MEDS: ACETAMINOPHEN 325 MG TAB PO PRN (11:56)
[2019-01-16] MEDS ORDERED: LORazepam 1 MG TAB ONE (11:59)
[2019-01-16] MEDS: LORAZEPAM PO PRN (12:02)
[2019-01-16] MEDS ORDERED: SODIUM CHL 0.9% 50ML MIN-BAG+ 50 ML IVPB ONE (19:43)
[2019-01-16] MEDS ORDERED: cefTRIAXone SODIUM 1 GM VIAL ONE (19:43)
[2019-01-16] MEDS ORDERED: SODIUM CHLORIDE 0.9% 250ML 250 ML ONE (19:43)
[2019-01-16] MEDS ORDERED: AZITHROMYCIN IV 500 MG VIAL IVPB ONE (19:44)
[2019-01-16] MEDS ORDERED: LORazepam 1 MG TAB PO PRN (21:00)
[2019-01-16] MEDS: cefTRIAXone SODIUM 1 GM in SODIUM CHL 0.9% 50ML MIN-BAG+ 50 ML IVPB SCH (22:45)
[2019-01-16] MEDS: AZITHROMYCIN IV 500 MG in SODIUM CHLORIDE 0.9% 250ML 250 ML IVPB SCH (22:46)
[2019-01-17] MEDS: KCL 20MEQ/0.45% NS 1,000 ML IVS PRN ×2 (00:13→06:39)
[2019-01-17] MEDS: IV SET AND CAP CHANGE INJ INJ SCH (00:16)
[2019-01-17] MEDS: ENOXAPARIN SODIUM 40 MG/0.4 ML SYG SUBCU SCH (08:18)
[2019-01-17] MEDS: POTASSIUM CHLORIDE 10 MEQ TAB PO SCH (08:19)
[2019-01-17] MEDS: PREGABALIN 100 MG CAP PO SCH (08:19)
[2019-01-17] MEDS: METOPROLOL SUCCINATE XL 50 MG TAB PO SCH (08:19)
[2019-01-17] MEDS: CLOPIDOGREL 75 MG TAB PO SCH (08:19)
[2019-01-17] MEDS: amLODIPine BESYLATE 5 MG TAB PO SCH (08:19)
[2019-01-17] MEDS: ATORVASTATIN 20 MG TAB PO SCH (08:19)
[2019-01-17] MEDS: OLANZapine ODT 5 MG TAB PO SCH (08:19)
[2019-01-17] MEDS: PYRIDOSTIGMINE BROMIDE 60 MG PO SCH (08:21)
[2019-01-17] MEDS: DESVENLAFAXINE SUCCINATE 100 MG PO SCH (08:21)
[2019-01-17 10:17] VITALS: BP 144/74; TEMP 98.6; O2SAT 98
--- NOTE | 2019-01-19 21:50 | DS ---
SUPERVISING PHYSICIAN: Jim Bobo M.D. ADMISSION DIAGNOSIS: 1. Mild to moderate exacerbation of myasthenia gravis secondary to medical compliance. 2. Generalized weakness with same-level fall secondary to #1. 3. Acute rhabdomyolysis secondary to #1. 4. Acute kidney injury secondary to rhabdomyolysis. 5. Elevated troponin level with no signs of acute injury pattern on EKG and the patient without any signs or symptoms of chest pain requiring further rule out. 6. Elevated ammonia level, probably due to rhabdomyolysis with elevated CPK levels requiring ongoing fluid management with the patient showing good clinical response to treatment. 7. Hypertension. 8. History of reflex sympathetic dystrophy and trigeminal neuralgia. 9. Electrolyte imbalance with a mild hypokalemia. DISCHARGE DIAGNOSIS: 1. Mild exacerbation of myasthenia gravis secondary to poor medical compliance with medication regimen, now resolved with reinitiation of medications and treatment. 2. Generalized weakness complicated by sedative medications including [place] and presenting as a same-level fall secondary to #1. 3. Acute rhabdomyolysis secondary to #1, resolving with fluids, near baseline levels. 4. Acute kidney injury secondary to rhabdomyolysis at baseline levels after treatment with fluids and sodium bicarbonate infusion. 5. Elevated troponin level having returned to baseline levels with no signs of acute injury on EKG. No chest pains or complications, likely due to elevated CK levels and mild kidney injury due to rhabdomyolysis. 6. Metabolic encephalopathy secondary to elevated ammonia levels, complications from rhabdomyolysis and elevated CK levels and myasthenia gravis, now back to baseline status with mentation being normal prior to discharge. 7. Hypertension, stable. 8. History of reflex sympathetic dystrophy and trigeminal neuralgia. 9. Electrolyte imbalance with hyponatremia, now resolved with fluids. REASON FOR HOSPITALIZATION: Mr. Chauhan is a 73-year-old male patient with a history of myasthenia gravis, reflex sympathetic dystrophy and trigeminal neuralgia. He presented to the Emergency Room via 911 secondary to increased drowsiness and weakness with multiple falls within the last several days. He had actually fallen on the same day as admission and laid on the floor for a couple of hours face down and required assistance to get up and was taken to the Emergency Department for evaluation. In the Emergency Room, he was found to be very somnolent and appeared to be over sedated with medications to include [place]. He was also having some bilateral hip pain since the fall and he does take pyridostigmine for myasthenia gravis and is unsure whether or not he had actually missed a dose or two the other day. His O2 saturations on transport to the Emergency Room were around 88%. Additional laboratory studies in the Emergency Room showed he did have an elevated ammonia level at 49 and a CK 4,564 with troponin elevated at 0.29. He denied any chest pains. EKG showed no acute injury pattern. He then had a CT of the head which showed mild chronic microvascular changes without acute intracranial findings. He was given a dose of pyridostigmine which did result in some increase in his mentation. Given his fall and his elevated CPK levels with concerns for developing rhabdomyolysis and what appears to be a mild exacerbation of his myasthenia gravis secondary to poor compliance with medication regimen, the patient is going to be admitted to the hospital for ongoing treatment of acute rhabdomyolysis secondary to a same- level fall and further neurologic evaluation. LABORATORY STUDIES: CBC on admission showed white count 5,800, at discharge 5,900. Hemoglobin and hematocrit were stable, at discharge was 13.1 and 39.3 respectively with platelet count 142,000. Differential showed to be without a left shift. Blood gas analysis on admission just showed a mildly elevated pCO2 but pO2 was 97 on room air with ABG pH of 7.41, bicarb being normal at 29.8. Chemistries initially on admission showed potassium 3.3. Prior to discharge electrolytes had normalized with potassium being 3.9. Initial CPK was 4,564 elevated to a maximum of 5,010, was returning to baseline levels at 901 prior to discharge after treatment. Initial troponin was 0.29 and returning to baseline with last one being at 0.13. Magnesium was normal at 1.9. Liver functions showed an elevated AST at 95 likely secondary to elevated CPK levels with all other liver enzymes being within normal limits except for ammonia level which was slightly elevated at 49. Urinalysis initially on admission showed a moderate amount of blood after catheterization for I and O purposes showed a moderate amount of blood with 20 to 30 RBCs, otherwise within normal limits with an alkalotic pH of 8.5 while on sodium bicarbonate infusion. MICROBIOLOGY: MRSA surveillance culture was negative. RADIOLOGY: He had a CT of the head without contrast per radiology interpretation was without any acute findings. He also had a bilateral hip x- ray which showed no acute findings, fractures or dislocations. HOSPITAL COURSE: Mr. Chauhan was admitted on 01/13/19 after he was found to be lethargic which was secondary to myasthenia gravis exacerbation and developing rhabdomyolysis. He was started on sodium bicarbonate infusion which he did show good response. He was transitioned to normal saline and on the day of discharge was showing to be at normal mental status. It was felt that he had returned to baseline levels and was clinically stable enough to continue with outpatient management as he had responded well to treatment and his CK levels returned to baseline levels. PLAN: Mr. Chauhan was discharged on 01/17/19 with instructions to followup with his primary care provider, Dr. Kibry, in the following week. He was encouraged fluids to prevent dehydration. He was instructed to resume his home medications and to be compliant with his myasthenia treatment, and to avoid oversedation secondary to pain management. He was told to return to the hospital should he have any concerning symptoms or other worsening problems. Diet at discharge was regular diet as tolerated. Activity is to increase as tolerated. No new medications were prescribed at time of discharge. DISPOSITION: The patient was discharged home to the care of family. Condition on discharge was stable and improved. #[id number] [facility]
== END 2019-01-17 13:54 | disposition home health service (06) | DRG 56 ==
LOC: ER 17:08 → MS 22:44
PROVIDERS: ADMIT Nurse Practitioner Family; ATTEND Nurse Practitioner Family
DX: G70.01 Myasthenia gravis with (acute) exacerbation (principal); G93.41 Metabolic encephalopathy; M62.82 Rhabdomyolysis; N17.9 Acute kidney failure, unspecified; G90.59 Complex regional pain syndrome I of other specified site; E87.6 Hypokalemia; R74.8 Abnormal levels of other serum enzymes; R29.6 Repeated falls; T40.2X5A Adverse effect of other opioids, initial encounter; T44.0X6A Underdosing of anticholinesterase agents, initial encounter; I10 Essential (primary) hypertension; I25.10 Atherosclerotic heart disease of native coronary artery without angina pectoris; E78.5 Hyperlipidemia, unspecified; E66.9 Obesity, unspecified; Z91.19 Patient's noncompliance with other medical treatment and regimen; Y92.009 Unspecified place in unspecified non-institutional (private) residence as the place of occurrence of the external cause; Z91.138 Patient's unintentional underdosing of medication regimen for other reason; Z79.891 Long term (current) use of opiate analgesic; Z79.899 Other long term (current) drug therapy; Z86.73 Personal history of transient ischemic attack (TIA), and cerebral infarction without residual deficits; Z95.5 Presence of coronary angioplasty implant and graft; Z79.02 Long term (current) use of antithrombotics/antiplatelets; Z68.33 Body mass index [BMI] 33.0-33.9, adult

== ENCOUNTER → 2019-04-28 | Outpatient (CLI) | payer OTHER ==
--- NOTE | 2019-04-28 13:39 | RAD ---
EXAM DESCRIPTION: Pelvis CLINICAL HISTORY: 73 years Male, M25.551,M25.552 COMPARISON: Radiographs dated 01/13/2019. TECHNIQUE: AP radiograph of the pelvis was performed. FINDINGS: The pelvic ring appears grossly intact on this single AP radiograph. No acute fracture or dislocation. Bilateral sacroiliac joints appear normal. Mild degenerative changes identified in the bilateral hip joints. The visualized lumbo-sacral spine demonstrates mild degenerative changes. Enthesopathy of the bilateral iliac crests. IMPRESSION: Single AP radiograph of the pelvis demonstrates grossly intact pelvic ring. Mild bilateral hip osteoarthritis. Electronically signed by: Holile Levine MD 04/28/2019 1:38 PM CDT
--- NOTE | 2019-04-28 13:40 | RAD ---
EXAM DESCRIPTION: Hip Bilateral CLINICAL HISTORY: 73 years Male, M25.551,M25.552 COMPARISON: Radiographs dated 01/14/2019. FINDINGS: The visualized bones are well-mineralized.No acute fracture or dislocation. Mild degenerative changes identified in both hip joints. The soft tissues appear grossly unremarkable. IMPRESSION: Mild bilateral hip osteoarthritis. Electronically signed by: Hollie Levine MD 04/28/2019 1:38 PM CDT
== END ==
LOC: RAD 09:09
PROVIDERS: ATTEND Orthopaedic Surgery
DX: M16.0 Bilateral primary osteoarthritis of hip (principal)

== ENCOUNTER 2019-10-06 18:55 | Observation (INO) | payer OTHER ==
[2019-10-06] MEDS ORDERED: SODIUM CHLORIDE 0.9% (FLUSH) 10 ML SYG IV PRN ×2 (19:07→23:24)
[2019-10-06] MEDS ORDERED: SODIUM CHLORIDE 0.9% 1000ML 1,000 ML IVS ONE ×2 (19:08→21:02)
--- NOTE | 2019-10-06 19:12 | ED.PDOC ---
History of Present Illness - General Chief Complaint: Trauma Time Seen by Provider: 10/06/19 18:57 Source: patient, EMS notes reviewed - History of Present Illness Initial Comments: 74 yo male with PMH of myasthenia gravis, chronic pain who is bib EMS from home for cc of falls at home with injury. Pt states he fell once last night and again just MEDICAL RECRUITER. Last night he reports he tripped in his bedroom and struck his head and right shoulder against the drawers on his way to the ground. Just MEDICAL RECRUITER reports had just urinated and became dizzy and fell again on right side. Here denies any major injuries/pain but reportedly complained of some right hip pain with movement by EMS. Denies any LOC, headache, neck pain, chest pain, dyspnea, abd pain, n/v/d, urinary sx's. Pt takes [place] 10 and morphine PRN pain at home. States he took 4 [place]'s yesterday (q6h) and 2 today. Also took a dose of morphine earlier but unsure of the dosage. Per chart, pt has hx of overusing pain meds it appears. After arrival, spoke with pt's daughter, Nalini, over phone. She states pt took double the dose of his usual daily meds which he takes at noon today, including his diuretics and pain medications. Allergies/Adverse Reactions: Allergies NO KNOWN ALLERGY Allergy (Verified 07/13/16 14:57) Home Medications: Ambulatory Orders Amlodipine Besylate [Norvasc] 10 mg PO DAILY 11/06/14 Clopidogrel Bisulfate [Plavix] 75 mg PO DAILY 11/06/14 Desvenlafaxine Succinate [Pristiq] 100 mg PO DAILY 11/06/14 Furosemide [Lasix] 40 mg PO QAM 07/13/16 Potassium Chloride [Potassium Chloride ER] 10 meq PO BID 07/13/16 Metoprolol Succinate [Toprol Xl] 50 mg PO QAM #30 tab.er.24 08/16/16 Chlorthalidone [Hygroton] 25 mg PO DAILY 01/13/19 HYDROcodone 10MG/APAP 325MG [[place] 10/325] 2 ea PO BID 01/13/19 Aripiprazole [Abilify] 2 mg PO DAILY 10/06/19 Meloxicam [Mobic] 15 mg PO DAILY 10/06/19 Morphine Sulfate 15 mg PO TID 10/06/19 Olanzapine [Zyprexa] 5 mg PO DAILY 10/06/19 Pyridostigmine [place] [Mestinon] 30 mg PO BID 10/06/19 Rosuvastatin Calcium [Crestor] 5 mg PO DAILY 10/06/19 Review of Systems - Review of Systems Review of Systems: 10/06/19 19:12 as per HPI All other Systems: Reviewed and Negative Past Medical History (General) - Patient Medical History Hx Seizures: No Hx Stroke: No Hx Asthma: No Hx of COPD: No Hx Cardiac Disorders: Yes Hx Congestive Heart Failure: Yes Hx Pacemaker: No Hx Hypertension: Yes Hx Diabetes: No Hx MRSA: Yes - 2014 MRSA Source:: Wound - Vaccination History Hx Influenza Vaccination: Yes Hx Pneumococcal Vaccination: Yes - Social History Hx Tobacco Use: Yes Hx Chewing Tobacco Use: Yes Hx Alcohol Use: No Hx Substance Use: No Hx Substance Use Treatment: No Hx Depression: No Hx Physical Abuse: No Hx Emotional Abuse: No - Female History Patient : No Family Medical History - Family History Father Family History: Unknown Living Status: Age at (years of age): 71 Cause of : [place] Mother Family History: Unknown Living Status: Age at (years of age): 87 Cause of : [place] Physical Exam - Physical Exam General Appearance: Alert, Comfortable, No apparent distress, Other - Disheveled, poor hygiene Eye Exam: bilateral normal Ears, Nose, Throat: hearing grossly normal, normal ENT inspection, normal pharynx Neck: non-tender, supple, normal inspection Respiratory: chest non-tender, lungs clear, normal breath sounds, no respiratory distress Cardiovascular/Chest: normal peripheral pulses, regular rate, rhythm, no edema, no gallop, no murmur Peripheral Pulses: radial,right: 2+, radial,left: 2+ Gastrointestinal/Abdominal: non tender, soft, no organomegaly Back Exam: normal inspection, no CVA tenderness, no vertebral tenderness Extremity: normal range of motion, non-tender, normal inspection, no pedal edema, no calf tenderness, other - BL hip exam appears normal Neurologic: superintendent logging II-XII nml as tested, no motor/sensory deficits, normal mood/affect, other - appears slightly drowsy. States the month is August and year is 2018. Oriented to person and place. Skin Exam: normal color, warm/dry Progress - Progress Progress: 10/06/19 19:14 Ground level fall -consider ICH, skull frx, c-spine frx, R hip frx, pelvic frx, other injuries -obtain labs, cardiac work-up, CT head/c-spine, XR chest & pelvis 10/06/19 20:58 -CT head & c-spine show no acute processes - will clear c collar at bedside. Right knee XR no acute processes. CXR no acute processes per my read. -Pelvis XR shows probable R sacral frx and possible right femoral neck frx - CT imaging recommended. -Pt's labs reveal JAMES and slightly elevated alk phos and LFTs. T bili 0.9. CBC largely unremarkable. CPK slightly elevated to 206. Trop 0.03. Flu is neg. -Will obtain CT A/P to further eval R sacrum and hip and also to evaluate g allbladder/liver, abdomen given abnormal CMP. -Pt remains stable. 10/06/19 23:11 -CT A/P shows mild colonic constipation but otherwise no acute processes. Gallbladder/liver/pancreas unremarkable. Right hip & sacrum without evidence of fracture. -UA unremarkable. No clear source for fever, suspect viral in nature. -Pt has remained stable, more alert, able to stand and urinate independently at bedside. Discussed with patient and with his daughter, Nalini, over the phone the findings, dx's of JAMES and mild rhabdomyolysis and need for admission. -Spoke with Narendra Newman who accepts for admission. Marshal James MD Billing #[id number] - Results/Orders Results/Orders: 10/06/19 19:07 IV Care:Saline Lock per Protoc QSHIFT Telemetry .ONCE Sodium Chloride 0.9% (Flush) [Saline Flush Syringe] 10 ml IV PRN PRN Pulse Oximetry Assessment DAILY 10/06/19 19:15 EKG STAT 10/07/19 09:00 Pulse Ox Daily Laboratory Results - last 24 hr 10/06/19 10/06/19 10/06/19 19:05 19:05 19:05 WBC 7.4 RBC 3.86 L Hgb 12.5 L Hct 37.1 L MCV 95.9 H MCH 32.3 H MCHC 33.6 RDW 12.9 Plt Count 187 MPV 7.7 Absolute Neuts (auto) 5.60 Absolute Lymphs (auto) 0.90 L Absolute Monos (auto) 0.80 Absolute Eos (auto) 0.10 Absolute Basos (auto) 0.10 Neutrophils % 74.9 Lymphocytes % 12.3 L Monocytes % 10.6 H Eosinophils % 1.5 Basophils % 0.7 Sodium 138 Potassium 3.6 Chloride 92 L Carbon Dioxide 29 Anion Gap 20.6 H BUN 45 H Creatinine 2.48 H BUN/Creatinine Ratio 18.1 Random Glucose 91 Serum Osmolality 286.8 Calcium 9.4 Total Bilirubin 0.9 AST 147 H ALT 160 H Alkaline Phosphatase 168 H Creatine Kinase Troponin I 0.03 B-Natriuretic Peptide 12.2 Serum Total Protein 7.1 Albumin 4.0 Globulin 3.1 Albumin/Globulin Ratio 1.3 Urine Color Urine Appearance Urine pH Ur Specific Shorter Urine Protein Urine Glucose (UA) Urine Ketones Urine Blood Urine Nitrite Urine Bilirubin Urine Urobilinogen Ur Leukocyte Esterase Urine RBC Urine WBC Ur Epithelial Cells Urine Bacteria 10/06/19 10/06/19 19:05 22:45 WBC RBC Hgb Hct MCV MCH MCHC RDW Plt Count MPV Absolute Neuts (auto) Absolute Lymphs (auto) Absolute Monos (auto) Absolute Eos (auto) Absolute Basos (auto) Neutrophils % Lymphocytes % Monocytes % Eosinophils % Basophils % Sodium Potassium Chloride Carbon Dioxide Anion Gap BUN Creatinine BUN/Creatinine Ratio Random Glucose Serum Osmolality Calcium Total Bilirubin AST ALT Alkaline Phosphatase Creatine Kinase 206 H* Troponin I B-Natriuretic Peptide Serum Total Protein Albumin Globulin Albumin/Globulin Ratio Urine Color Yellow Urine Appearance Clear Urine pH 5.0 Ur Specific Shorter 1.015 Urine Protein Negative Urine Glucose (UA) Negative Urine Ketones Negative Urine Blood Negative Urine Nitrite Negative Urine Bilirubin Negative Urine Urobilinogen 0.2 Ur Leukocyte Esterase Negative Urine RBC 0 Urine WBC 0 Ur Epithelial Cells 0-1 Urine Bacteria 0 - EKG/XRAY/CT EKG: Sinus - NSR, HR 65, no ST elevations or q waves noted, nonspecific min ST segment depressions in inferior & lateral leads, axis normal, intervals normal, appears largely unchanged from 01/13/19 EKG. Departure - Departure Clinical Impression: Acute kidney injury (nontraumatic) Rhabdomyolysis Qualifiers: Rhabdomyolysis type: non-traumatic Qualified Code(s): M62.82 - Rhabdomyolysis Time of Disposition: 23:15 Disposition: Admit Patient Condition: Fair Departure Forms: ED Discharge - Pt. Copy, Patient Portal Self Enrollment Referrals: Benjamin Kirby MD [Primary Care Provider] - 1-2 Weeks Home Medications: Ambulatory Orders Amlodipine Besylate [Norvasc] 10 mg PO DAILY 11/06/14 Clopidogrel Bisulfate [Plavix] 75 mg PO DAILY 11/06/14 Desvenlafaxine Succinate [Pristiq] 100 mg PO DAILY 11/06/14 Furosemide [Lasix] 40 mg PO QAM 07/13/16 Potassium Chloride [Potassium Chloride ER] 10 meq PO BID 07/13/16 Metoprolol Succinate [Toprol Xl] 50 mg PO QAM #30 tab.er.24 08/16/16 Chlorthalidone [Hygroton] 25 mg PO DAILY 01/13/19 HYDROcodone 10MG/APAP 325MG [[place] ] 2 ea PO BID 01/13/19 Aripiprazole [Abilify] 2 mg PO DAILY 10/06/19 Meloxicam [Mobic] 15 mg PO DAILY 10/06/19 Morphine Sulfate 15 mg PO TID 10/06/19 Olanzapine [Zyprexa] 5 mg PO DAILY 10/06/19 Pyridostigmine [place] [Mestinon] 30 mg PO BID 10/06/19 Rosuvastatin Calcium [Crestor] 5 mg PO DAILY 10/06/19 Decision To Admit - Decistion To Admit Decision to Admit Reason: Admit from ER Decision to Admit Date: 10/06/19 Decision to Admit Time: 23:16
--- NOTE | 2019-10-06 20:30 | RAD ---
EXAM DESCRIPTION: Chest,1 View CLINICAL HISTORY: 74 years Male ground level fall x2 today COMPARISON: 01/13/2019 FINDINGS: Cardiac enlargement. Poor depth of inspiration. No acute consolidation or evidence of edema. No pneumothorax. IMPRESSION: Stable appearance of the chest Electronically signed by: Marry Rice MD 10/06/2019 8:28 PM POLICE ACADEMY PROGRAM COORDINATOR
--- NOTE | 2019-10-06 20:30 | CT ---
EXAM DESCRIPTION: Head CLINICAL HISTORY: ground level fall with closed head injury COMPARISON: 01/13/2019 TECHNIQUE: Contiguous axial CT images of the head were obtained. Coronal and sagittal reconstructions were created from the axial data. This exam was performed according to our departmental dose-optimization program, which includes automated exposure control, adjustment of the mA and/or kV according to patient size and/or use of iterative reconstruction technique. FINDINGS: Patient motion limits detail. There is no evidence of acute mass, mass effect, midline shift or hemorrhage. The ventricles and extra-axial CSF spaces are unremarkable. The brain parenchyma appears normal for the patient's age. No acute abnormalities of the bones is seen. IMPRESSION: No acute intracranial abnormality. Electronically signed by: Marquez Vergara 10/06/2019 8:29 PM [facility]
--- NOTE | 2019-10-06 20:35 | CT ---
EXAM DESCRIPTION: CT CERVICAL SPINE CLINICAL HISTORY: ground level fall with closed head injury COMPARISON: None Available. TECHNIQUE: Contiguous axial images of the cervical spine were obtained followed by reconstruction images.This exam was performed according to our departmental dose-optimization program, which includes automated exposure control, adjustment of the mA and/or kV according to patient size and/or use of iterative reconstruction technique. FINDINGS: There is no acute fracture or subluxation. The prevertebral soft tissues are within normal limits. IMPRESSION: No acute fracture or subluxation. Electronically signed by: Marquez Vergara 10/06/2019 8:33 PM [facility]
--- NOTE | 2019-10-06 20:37 | RAD ---
EXAM DESCRIPTION: Pelvis CLINICAL HISTORY: ground level fall, right hip pain COMPARISON: None FINDINGS: One view(s) submitted. There is a probable nondisplaced right sacral fracture. Detail is limited and CT is recommended. There is a possible nondisplaced fracture of the right femoral head and neck but I suspect this is artifact from coarse trabecula; CT of the pelvis is performed I recommend including the right proximal femur. No other fracture or dislocation is identified. Bone marrow attenuation is unremarkable. No radiopaque foreign body is identified. IMPRESSION: Probable right sacral fracture. Possible proximal right femur fracture. CT is recommended. Electronically signed by: Marquez Vergara 10/06/2019 8:35 PM INTELLECTUAL PROPERTY LEGAL ASSISTANT
--- NOTE | 2019-10-06 22:15 | CT ---
PROCEDURE: CT Abdomen/Pelvis w/o Contrast CLINICAL HISTORY: 74 years Male question R sacral and hip fractures, elev alk phos, LFTs TECHNIQUE: Contiguous axial images obtained through the abdomen and pelvis without IV contrast. Coronal and sagittal reformatted images provided. This CT exam was performed according to our departmental dose-optimization program, which includes one or more of the following dose reduction techniques: automated exposure control, adjustment of the mA and/or kV according to patient size, and/or use of iterative reconstruction technique. COMPARISON: No prior exams provided for comparison. FINDINGS: There are no lower rib, lumbar, or pelvic fractures. In particular, there is no fracture of the sacrum or either proximal femur. There are mild to moderate chronic degenerative changes throughout the lumbar spine and at both sacroiliac joints. There is mild bilateral hip osteoarthritis. No evidence of avascular necrosis or aggressive osseous lesion. Mild bibasilar atelectasis. The visualized unenhanced liver, biliary tree, gallbladder, pancreas, spleen, adrenal glands, kidneys, and urinary bladder demonstrate no acute findings. Mild colonic constipation. No bowel inflammation, obstruction, pneumatosis, free intraperitoneal air, abscess, or ascites. Atherosclerosis without abdominal aortic aneurysm or retroperitoneal hemorrhage. IMPRESSION: No acute injury in the abdomen or pelvis. In particular, there is no sacral or hip fracture. Mild colonic constipation. Electronically signed by: Alondra Nieves MD 10/06/2019 10:14 PM [employer] SALES CONSULTANT
[2019-10-06] MEDS ORDERED: IV SET AND CAP CHANGE INJ INJ SCH (23:30)
[2019-10-07] MEDS: LACTATED RINGERS 1,000 ML IVS PRN ×2 (00:39→17:48)
[2019-10-07] MEDS: PYRIDOSTIGMINE BROMIDE 30 MG PO SCH ×3 (00:42→21:00)
[2019-10-07] MEDS ORDERED: CIPROFLOXACIN 0.3% OPHTH SOL 1 DROP ONE (08:30)
[2019-10-07] MEDS: HYDROcodone 10MG/APAP 325MG 1 EA TAB PO SCH ×2 (08:47→20:58)
[2019-10-07] MEDS ORDERED: MELOXICAM 7.5 MG TAB ONE (08:51)
[2019-10-07] MEDS ORDERED: OLANZapine ODT 5 MG TAB ONE (08:51)
[2019-10-07] MEDS ORDERED: amLODIPine BESYLATE 5 MG TAB ONE (08:52)
[2019-10-07] MEDS: POTASSIUM CHLORIDE 10 MEQ TAB PO SCH ×2 (08:55→20:58)
[2019-10-07] MEDS: MELOXICAM 7.5 MG TAB PO SCH (08:55)
[2019-10-07] MEDS: CLOPIDOGREL 75 MG TAB PO SCH (08:55)
[2019-10-07] MEDS: METOPROLOL SUCCINATE XL 50 MG TAB PO SCH (08:55)
[2019-10-07] MEDS: MORPHINE *IMMEDIATE RELEASE* 15 MG TAB PO SCH ×3 (08:55→20:59)
[2019-10-07] MEDS: amLODIPine BESYLATE 5 MG TAB PO SCH (08:55)
[2019-10-07] MEDS: OLANZapine ODT 5 MG TAB PO SCH (08:58)
[2019-10-07] MEDS: DESVENLAFAXINE SUCCINATE 100 MG PO SCH (08:58)
[2019-10-07] MEDS: ARIPIPRAZOLE 2 MG PO SCH (08:58)
[2019-10-07] MEDS: ENOXAPARIN SODIUM 30 MG/0.3 ML SYG SUBCU SCH (08:58)
[2019-10-07] MEDS: CIPROFLOXACIN 0.3% OPHTH SOL 1 DROP RIGHT_EYE SCH ×4 (08:58→20:57)
--- NOTE | 2019-10-07 09:07 | SSS ---
SUPERVISING PHYSICIAN: Ran Cartagena MD CHIEF COMPLAINT: Falling. HISTORY OF PRESENT ILLNESS: This is a 74-year-old male patient who came into the Emergency Room due to a fall. He has a history of myasthenia gravis and chronic pain, however, EMS was called due to the fact that he had fallen about 3 times at home. Apparently last night, he fell and hit his head along with his right shoulder. Today he came in and had actually gotten dizzy and fell again. Upon arrival, he actually had complained of some right hip pain. His states sometimes he gets confused and takes more of his pain medicine than he normally does. His medications include [place] 10 and morphine at home as needed. When he was seen in the Emergency Room, his workup included labs as well as pelvis x-ray. His CBC was unremarkable. His chemistries showed an elevation of BUN and creatinine to 45 and 2.48 respectively. He also had elevations in AST and ALT at 147 and 160 respectively. Urinalysis was negative for urinary tract infection. He had pelvic x-ray which stated a problem with sacral fracture and possible proximal right femur fracture. For that reason, he had a CT scan to reevaluate that. On the CT scan, there were no fractures noted. CT scan of the head was unremarkable. Cervical spine CT did not show any acute injuries either. Given his unintentional over-medication as well as acute kidney injury, he was referred for admission. At the time of examination this morning, the patient is alert, answers questions appropriately although somewhat confused. PAST MEDICAL HISTORY: 1. Coronary artery disease. 2. Hypertension. 3. Hyperlipidemia. 4. Diverticulosis. 5. Myasthenia gravis. 6. Chronic pain syndrome. 7. Transient ischemic attacks. 8. Reflex sympathetic dystrophy. 9. Trigeminal neuralgia. PAST SURGICAL HISTORY: 1. PTCA with stent in 2004 and 2014, unknown vessel. 2. Trigeminal nerve ablation on the right. MEDICATIONS: 1. Amlodipine 10 mg p.o. daily. 2. Abilify 2 mg p.o. daily. 3. Chlorthalidone 25 mg daily. 4. Clopidogrel 75 mg daily. 5. Pristiq 100 mg p.o. daily. 6. Lasix 40 mg p.o. daily.M 7. Hydrocodone 10/325, 2 tabs b.i.d. 8. Mobic 50 mg p.o. daily. 9. Morphine sulfate 50 mg p.o. t.i.d. 10. Zyprexa 5 mg p.o. daily. 11. Potassium 10 mEq p.o. b.i.d. 12. Mestinon 30 mg p.o. b.i.d. 13. Crestor 15 mg p.o. daily. 14. Metoprolol XL 50 mg p.o. q.a.m. ALLERGIES: NO KNOWN DRUG ALLERGIES. FAMILY HISTORY: The patient is not a good historian. No family is present to ask about family history at this time. SOCIAL HISTORY: Per the chart, the patient is a disabled and . He lives at home with his . He has Lewy body dementia. He has 2 children. No smoking, no drinking, no illicit drugs. REVIEW OF SYSTEMS: CONSTITUTIONAL: No fever or chills. Positive for weakness. HEENT: No headaches, vision changes, ear pain, nasal congestion or throat pain. RESPIRATORY: No cough, hemoptysis or pleuritic chest pain. CARDIOVASCULAR: No chest pain, palpitations or peripheral edema. GASTROINTESTINAL: No nausea, vomiting, diarrhea, constipation or abdominal pain. GENITOURINARY: No dysuria, frequency or flank pain. HEMATOLOGIC: No easy bruising and no transfusion reaction. MUSCULOSKELETAL: The patient has right hip pain. No muscle cramps or myalgias. ENDOCRINE: No polydipsia, polyuria or polyphagia. No heat or cold intolerance. NEUROLOGIC: Positive for weakness and falling. No paresthesias or seizures. PHYSICAL EXAMINATION: VITAL SIGNS: Blood pressure 152/73. Heart rate 76. Respiratory rate 19. Temperature 98.2. Oxygen saturation 98%. GENERAL: Mr. Chauhan is a 74-year-old male patient in no active distress currently. NEUROLOGIC: The patient is alert, but confused. No focal deficits. LUNGS: Clear to auscultation bilaterally. CARDIOVASCULAR: Regular rate and rhythm. Normal S1, S2. ABDOMEN: Soft. Positive bowel sounds. GENITOURINARY: Deferred. EXTREMITIES: Lower extremities with no edema. LABORATORY: Labs and films are as discussed in history of present illness. ASSESSMENT: 1. Unintentional over-medication. 2. Acute kidney injury. 3. Falling secondary to #1. 4. Dehydration. 5. History of myasthenia gravis without evidence of crisis. 6. Chronic pain syndrome. PLAN: At this time, the patient is going to be rehydrated with IV fluids. I have restarted Mestinon and his pain medication. I am going to hold off on his diuretics and I will restart other medications as well. DVT prophylaxis as listed in computer. Likely, 24 hours of fluids will be sufficient and he can probably discharge tomorrow. #[id number] MTDD
[2019-10-07] MEDS ORDERED: ATORVASTATIN 10 MG TAB PO SCH (21:00)
[2019-10-08] MEDS: LACTATED RINGERS 1,000 ML IVS PRN (00:43)
[2019-10-08] MEDS: CIPROFLOXACIN 0.3% OPHTH SOL 1 DROP RIGHT_EYE SCH ×4 (00:46→12:58)
[2019-10-08] MEDS ORDERED: ONDANSETRON INJ 4 MG/2 ML VIAL IV ONE (02:55)
[2019-10-08] MEDS: MELOXICAM 7.5 MG TAB PO SCH (08:42)
[2019-10-08] MEDS: POTASSIUM CHLORIDE 10 MEQ TAB PO SCH (08:42)
[2019-10-08] MEDS: amLODIPine BESYLATE 5 MG TAB PO SCH (08:42)
[2019-10-08] MEDS: OLANZapine ODT 5 MG TAB PO SCH (08:42)
[2019-10-08] MEDS: HYDROcodone 10MG/APAP 325MG 1 EA TAB PO SCH (08:43)
[2019-10-08] MEDS: CLOPIDOGREL 75 MG TAB PO SCH (08:43)
[2019-10-08] MEDS: PYRIDOSTIGMINE BROMIDE 30 MG PO SCH (08:43)
[2019-10-08] MEDS: DESVENLAFAXINE SUCCINATE 100 MG PO SCH (08:43)
[2019-10-08] MEDS: ARIPIPRAZOLE 2 MG PO SCH (08:43)
[2019-10-08] MEDS: ENOXAPARIN SODIUM 30 MG/0.3 ML SYG SUBCU SCH (08:43)
[2019-10-08] MEDS: MORPHINE *IMMEDIATE RELEASE* 15 MG TAB PO SCH (08:44)
[2019-10-08] MEDS: METOPROLOL SUCCINATE XL 50 MG TAB PO SCH (08:44)
[2019-10-08 08:55] VITALS: O2SAT 92
[2019-10-08 09:50] VITALS: TEMP 98.2
[2019-10-08 12:14] VITALS: BP 116/72
--- NOTE | 2019-10-17 10:26 | DS ---
SUPERVISING PHYSICIAN: Ran Cartagena MD ADDENDUM TO SHORT STAY SUMMARY HOSPITAL COURSE: The patient was gently hydrated. His vital signs were stable. His followup lab was stable with WBCs 12.6, hemoglobin 10.8, hematocrit 32.0. Electrolytes were basically within normal limits except for low potassium at 3.4 and he received some p.o. potassium supplementation. Creatinine improved to 1.57 with BUN 30. He has been walking in the hallways. We discussed his medications, his dosing and taking his medications properly. He will be discharged home in stable condition. DISCHARGE DIAGNOSIS: 1. Unintentional overmedication. 2. Acute kidney injury, improved. His creatinine is 1.57. 3. Falling secondary to #1 although he had no traumatic injuries. 4. Dehydration that is resolved. 5. History of myasthenia gravis without evidence of crisis. 6. Chronic pain syndrome. DISCHARGE PLAN: The patient will be discharged home in stable condition. His home medications are unchanged. He is to continue those at home including his diuretics. He is to followup with Dr. Kiryb in one to two weeks. He is to resume his previous diet, previous medications as well as increase his activity as tolerated and return to the hospital or followup with Dr. Kibry for any problems or complications. DISCHARGE MEDICATIONS: 1. Pristiq. 2. Plavix. 3. Norvasc. 4. Potassium chloride. 5. Lasix. 6. Toprol XL. 7. Chlorthalidone. 8. Hydrocodone. 9. Crestor. 10. Zyprexa. 11. Mestinon. 12. Mobic. 13. Abilify. 14. Morphine sulfate. #[id number] [facility]
== END 2019-10-08 14:54 | disposition home or self-care (01) ==
LOC: ER 18:55 → MS 23:46
PROVIDERS: ADMIT Nurse Practitioner; ATTEND Nurse Practitioner Acute Care
DX: N17.9 Acute kidney failure, unspecified (principal); M62.82 Rhabdomyolysis; T40.2X1A Poisoning by other opioids, accidental (unintentional), initial encounter; E86.0 Dehydration; S09.90XA Unspecified injury of head, initial encounter; S49.91XA Unspecified injury of right shoulder and upper arm, initial encounter; M25.551 Pain in right hip; S19.9XXA Unspecified injury of neck, initial encounter; G70.00 Myasthenia gravis without (acute) exacerbation; G89.4 Chronic pain syndrome; R29.6 Repeated falls; I25.10 Atherosclerotic heart disease of native coronary artery without angina pectoris; I10 Essential (primary) hypertension; E78.5 Hyperlipidemia, unspecified; G31.83 Neurocognitive disorder with Lewy bodies; F02.80 Dementia in other diseases classified elsewhere, unspecified severity, without behavioral disturbance, psychotic disturbance, mood disturbance, and anxiety; G90.50 Complex regional pain syndrome I, unspecified; G50.0 Trigeminal neuralgia; W01.190A Fall on same level from slipping, tripping and stumbling with subsequent striking against furniture, initial encounter; Z91.81 History of falling; Y92.003 Bedroom of unspecified non-institutional (private) residence as the place of occurrence of the external cause; Z79.891 Long term (current) use of opiate analgesic; Z79.02 Long term (current) use of antithrombotics/antiplatelets; Z79.1 Long term (current) use of non-steroidal anti-inflammatories (NSAID); Z79.899 Other long term (current) drug therapy; Z86.73 Personal history of transient ischemic attack (TIA), and cerebral infarction without residual deficits; Z95.5 Presence of coronary angioplasty implant and graft; Z87.891 Personal history of nicotine dependence
CPT/HCPCS: 96361 ×2; 96374; 96372 ×2; J1650 ×2; J2405; J7030 ×2; J7120 ×4; 80048; 80053 ×2; 36415; 81001; 85025 ×2; 82550; 84484; 83880; 71045; 72170; 70450; 72125; 74176; 94760 ×2; 97116; 97162; 99285; 93005; G0378 ×2; 87502

== ENCOUNTER → 2019-12-30 | Outpatient (CLI) | payer OTHER | LOC: GMAJ 16:08 | PROVIDERS: ATTEND Family Medicine | DX: Z12.5 Encounter for screening for malignant neoplasm of prostate (principal); I10 Essential (primary) hypertension ==

== ENCOUNTER → 2020-05-03 | Outpatient (CLI) | payer OTHER | LOC: BFHH 12:11 | PROVIDERS: ATTEND Family Medicine | DX: R60.9 Edema, unspecified (principal); M51.16 Intervertebral disc disorders with radiculopathy, lumbar region; M62.82 Rhabdomyolysis; G70.01 Myasthenia gravis with (acute) exacerbation; I12.9 Hypertensive chronic kidney disease with stage 1 through stage 4 chronic kidney disease, or unspecified chronic kidney disease; N18.4 Chronic kidney disease, stage 4 (severe); I25.10 Atherosclerotic heart disease of native coronary artery without angina pectoris; G62.9 Polyneuropathy, unspecified; J96.20 Acute and chronic respiratory failure, unspecified whether with hypoxia or hypercapnia; F32.9 Major depressive disorder, single episode, unspecified ==